=== PATIENT | female | born 1965 | race Caucasian/White ===

== ENCOUNTER → 2018-09-28 | Outpatient (CLI) | payer OTHER ==
--- NOTE | 2018-09-28 15:26 | US ---
EXAMINATION TYPE: US pelvic limited DATE OF EXAM: 09/28/2018 COMPARISON: NONE CLINICAL HISTORY: R10.2 Pelvic Pain. Patient c/o Right pubic pain. States uterus was removed 20 years ago, and both ovaries were removed 19 years ago. TECHNIQUE: Transabdominal (TA). Date of LMP: 20 years ago following total hysterectomy EXAM MEASUREMENTS: Uterus: Surgically absent cm Endometrial Stripe: Surgically absent cm Right Ovary: Surgically absent cm Left Ovary: Surgically absent cm 5. Bilateral Adnexa: wnl 6. Posterior cul-de-sac: wnl No masses or pathology seen in pelvis, or at area of pain. IMPRESSION: 1. No distinct abnormality appreciated. MTDD
== END | disposition home or self-care (01) ==
LOC: RADUSWWP 14:15
PROVIDERS: ATTEND Family Medicine
DX: R10.2 Pelvic and perineal pain (principal)
CPT/HCPCS: 76856